=== PATIENT | female | born 1960 | race Asian ===

== ENCOUNTER 2021-05-01 01:49 | Day surgery (SDC) | payer BC, SELFPAY ==
[2021-04-21 10:46] VITALS: BMI 20.2
--- NOTE | 2021-04-21 11:01 | PC.NURSE ---
Report to the Outpatient Waiting Room, entrance under the green pavilion located off [facility], at time 0830 on date 05/01/21. OR Time: 1030. - You and your visitor will be asked a series of questions to screen for COVID 19 for your protection. - A mask is required within the hospital. - Only one visitor is allowed at this time. Patient visitors will be guided where to wait when not with patient. Preoperative COVID Testing Requirements: No COVID Test needed if: (proof is required; if not received patient will have Rapid Test prior to entry) - Patient has received COVID Vaccine at least 14 days prior to procedure date or - Patient has positive COVID test result within last 90 days of surgery date. COVID Test needed if above criteria is not met If not COVID vaccinated a COVID test must be conducted within 72 hours of surgery and patient is asked to isolate self from time of testing until procedure. You will go to the [facility] for your COVID testing. The [facility] is located at the corner of [address] [facility]. You will only be called if COVID results are positive and your surgeon may reschedule your elective surgery date. Patients may have clear liquids (water, carbonated beverages, clear teas, apple juice) until 3 hours prior to surgery with a maximum of 20 ounces. - No food from midnight until time of surgery - Infants may have breast milk until 4 hours before surgery, formula 6 hours prior to surgery. - Children will be allowed to drink immediately following surgery. If applicable, please bring a bottle or sippy cup to assist with drinking. Juice, water, soda, and popsicles are readily available. For infants on formula, please bring formula the day of surgery. Pacifiers are allowed. Take the following medications with a SIP of water the morning of surgery: N/A Medications to discontinue per physician: VITAMINS/SUPPLEMENTS Date to take last dose: 04/27/21 Please no make-up, nail s[place]ankan, hairspray, perfume, deodorant, or body powder the day of surgery. No jewelry (including any body piercings) or valuables the day of surgery, leave them at home. Please take a shower or bath the night before, or the morning of, surgery with an antibacterial soap. Wear comfortable, loose fitting clothing. Children are encouraged to wear pajamas. - Jewelry must be removed prior to entering the operating room. Rings and piercings that are not removed may be cut off. - The hospital will not accept responsibility for valuables. - Please leave all valuables, including medications, at home the day of surgery. If you are going home after surgery, a licensed professional driver must drive you home. - NO public transportation without another adult. - We recommend that an adult stay with you for 24 hours following discharge. - We also recommend that you do not drive, make important decision, drink alcoholic beverages, or take any drugs that were not prescribed by your health care provider for at least 24 hours after your discharge time. For Pediatric surgeries, we recommend two adults accompany the child home (only one inside the building at this time). Follow any additional instructions given to you from your surgeon. Telephone instructions given to RASHAD CASTRO and asked if any additional questions and then verbalized understanding. Patient advised to call surgeon office or pre surgery nurse liaison [phone] if any additional questions.
[2021-05-01 08:23] VITALS: BP 126/50; PULSE 53; RESP 18; TEMP 36.5; O2SAT 100
[2021-05-01] MEDS: LACTATED RINGERS 1,000 ML 30 ML IV CONT (08:38)
--- NOTE | 2021-05-01 09:24 | P.PNAN_ITS ---
Anes - Initial Pre Proc Eval Procedure: Operation Date: 05/01/21 10:00 Proposed Procedures p Urethral Sling - Tigre Wells MD Date/Time: 05/01/21 09:24 Surgeon: Tigre Wells MD Pre Op Diagnosis: stress incontinence Patient Data Age: 61 Gender: F Height: 1.63 m Weight: 54.2 kg Last Vital Signs Temp 36.5 C 05/01/21 08:23 Pulse 53 L 05/01/21 08:23 Resp 18 05/01/21 08:23 BP 126/50 L 05/01/21 08:23 Pulse Ox 100 05/01/21 08:23 Allergies Allergy/AdvReac Type Severity Reaction Status Date / Time No Known Allergies Allergy Verified 05/01/21 08:23 Home Medications Medication Instructions Recorded Confirmed Type calcium carbonate [Calcium 600] 600 mg PO DAILY 04/21/21 05/01/21 History cholecalciferol (vitamin D3) 125 mcg PO DAILY 04/21/21 05/01/21 History [Vitamin D3] Patient hx anesthesia problems: none Family hx anesthesia problems: none Results Review: All pre-operative results and documents have been reviewed as part of the pre-operative evaluation. [facility] Social History Social History Smoking status: Never smoker Alcohol intake: never Substance use: never Substance use type: does not use Living arrangements: with family Spiritual care concerns: No Anes - Eval Final PreProcedure Day of Procedure 05/01/21 09:24 Patient weight: normal Heart: regular rate and rhythm Lungs: clear to auscultation Airway: Mallampati scale class II Neurological: alert and oriented Last oral intake: >/= 8 hours ASA classification: I Emergent: no Anesthetic plan: proceed Anesthesia type and monitoring: general GIVS and standard monitoring Results Review: All pre-operative results and documents have been reviewed as part of the pre-operative evaluation. Informed Consent: The patient's anesthetic plan and its attendant risks and benefits were discussed with the patient/family/POA. Questions were solicited and answers provided to the satisfaction of the patient/family/POA.
--- NOTE | 2021-05-01 09:42 | WPDHPUPDATE1 ---
History and Physical Update Update Date/Time: 05/01/21 09:42 History and Physical has been reviewed, including an updated exam of the patient. There are NO changes in the patient's condition. Risks, benefits, and alternatives have been discussed and questions answered. Patient agrees to proceed with procedure.
--- NOTE | 2021-05-01 09:43 | PM.IMHP ---
H&P: HPI History of Present Illness Date/Time: 05/01/21 09:43 61-year-old woman with stress incontinence confirmed on urodynamics Chief Complaint: Stress incontinence Review of Systems Review of Systems: All systems reviewed & are unremarkable except as noted in HPI and below PMFSH Social History Social History Smoking status: Never smoker Alcohol intake: never Substance use: never Substance use type: does not use Living arrangements: with family Spiritual care concerns: No Meds Home Medications and Allergies Home Medications Medication Instructions Recorded Confirmed Type calcium carbonate [Calcium 600] 600 mg PO DAILY 04/21/21 05/01/21 History cholecalciferol (vitamin D3) 125 mcg PO DAILY 04/21/21 05/01/21 History [Vitamin D3] Allergies Allergy/AdvReac Type Severity Reaction Status Date / Time No Known Allergies Allergy Verified 05/01/21 08:23 Vital Signs Vital Signs - 24 hr 05/01/21 08:23 Temperature 97.7 F Pulse Rate 53 L Respiratory Rate 18 Blood Pressure 126/50 L Pulse Oximetry 100 Exam Narrative: Thin and healthy No acute distress Urethral mobility. Assessment and Plan Assessment and plan (1) ANJLE (stress urinary incontinence, female): Code(s): N39.3 - Stress incontinence (female) (male) Status: Acute Assessment and Plan: Urethral sling
[2021-05-01] MEDS: ceFAZolin 2 GM/D5W 50 ML 2 GM/50 ML BAG IVPB (09:50)
[2021-05-01] MEDS: LIDO 1%/EPINEPHRINE 1:100,000 50 ML VIAL 30 ML INFILTRATE (10:04)
[2021-05-01] MEDS: KETOROLAC 30 MG/ML VIAL (*BKC) IV PUSH (10:21)
--- NOTE | 2021-05-01 10:25 | W.PM.PROC2 ---
Procedure Note - Detailed Date of Procedure 05/01/21 Pre-op Diagnosis stress incontinence Post-op Diagnosis same Procedure Performed mid urethral sling cystoscopy Surgeon Tigre Wells MD Indications This is a female with confirm stress urinary incontinence. She desires surgical correction. She understands the risks of bleeding, infection, injury to the urinary tract, vaginal mesh extrusion, urinary tract mesh erosion, obstructive voiding requiring a secondary procedure, hip and leg pain, dyspareunia, inability to improve overactive bladder symptoms. She agrees to proceed. Description of Procedure She was correctly identified. Informed consent obtained. She was brought the operating room. She was given appropriate anesthesia. She was given appropriate perioperative antibiotics. A time-out performed. I marked out the site of the inner thigh incisions. I anesthetized the skin and made those incisions. I anesthetized the anterior vaginal wall over the mid urethra. I made a 1 cm incision. I dissected out laterally taking great care not to injure the refilled vaginal wall. I passed the helical trocars. First on the left. Then on the right. I did this from the thigh incision towards the vaginal incision. The sling was connected to the trocars and brought out through the thigh incision. I tensioned the sling appropriately. I cut and the plastic sheaths. I then closed the incision with 2 0 Vicryl. On cystoscopy there is no tumors or surgical artifact. There was no surgical artifact in the urethra. I cut the excess sling material. Close incisions with glue. She was awakened and transferred to the PACU in stable condition. Implants Urethral sling Drains No Packing No Pathology none sent Complications No immediate complications Condition stable Disposition PACU
[2021-05-01 10:34] VITALS: BP 92/53; PULSE 54; RESP 12; O2SAT 100
[2021-05-01 11:05] VITALS: BP 100/61; PULSE 49; RESP 16
[2021-05-01 11:35] VITALS: BP 117/58; PULSE 51; RESP 12
[2021-05-01 12:00] VITALS: BP 131/70; PULSE 56; RESP 12
== END 2021-05-01 12:10 | disposition home or self-care (01) ==
PROVIDERS: Visit Provider Urology
PROC: (CPT 57288; principal; 2021-05-01 10:00)
DX: N39.3 Stress incontinence (female) (male) (principal)
CPT/HCPCS: 57288; A9270; C1771; J0690; J1885; J2250; J2704; J3010; J7030; J7120